=== PATIENT | male | born 1950 | race Caucasian/White ===

== ENCOUNTER 2019-09-27 14:56 | Inpatient (IN) | payer BC, MEDICARE ==
[~2019-09-27] VITALS: Ht 177.8 cm; Wt 90.9 kg
[2019-10-19 11:40] LABS: BASOPHILS 0.3 % (0-2); EOSINOPHILS 0.9 % (0-7); HEMATOCRIT 45.3 % (42.0-54.0); HEMOGLOBIN 14.5 g/dL (13.5-17.5); IMMATURE GRANULOCYTES 0.5 % (0-5); LYMPHOCYTES 24.2 % (15-50); MCV 90.6 fL (80.0-100.0); MEAN PLATELET VOLUME 9.9 fL (7.4-10.4); MONOCYTES 8.2 % (2-11); NEUTROPHILS 65.9 % (40-80); PLATELET COUNT 293 10x3/uL (130-400); RDW 13.3 % (11.5-14.5); WBC 6.5 10x3/uL (4.8-10.8)
[2019-10-19 11:47] LABS: CALCIUM 8.9 mg/dL (8.5-10.1); CARBON DIOXIDE 30.9 mmol/L (21.0-32.0); CREATININE - SERUM 1.1 mg/dL (0.6-1.3); POTASSIUM - SERUM 3.9 mmol/L (3.5-5.1)
[2019-10-19 11:51] LABS: APTT 27.8 SECONDS (22.8-39.4); INR 0.97 (0.85-1.17); PROTIME 12.9 SECONDS (11.6-15.0)
[2019-10-19 12:46] LABS: BILIRUBIN NEGATIVE (NEGATIVE); GLUCOSE NEGATIVE (NEGATIVE); KETONE NEGATIVE (NEGATIVE); NITRITE NEGATIVE (NEGATIVE); UROBILINOGEN NORMAL (NORMAL)
[2019-10-26] VITALS (12 sets, daily range): BP systolic 120–169; BP diastolic 64–99; Ht 177.8 cm; Wt 90.9 kg
--- NOTE | 2019-10-26 07:45 | NUR ---
PLASMA BLADE USED ON SETTING 6/8. CAUTERY PAD ON RIGHT FLANK LOT#[id number] EXP. 05/11/2021
--- NOTE | 2019-10-26 11:20 | NUR ---
PT RECEIVED FROM RECOVERY, AWAKE, ALERT AND ORIENTED. RESP EVEN AND UNLABORED. IV TO LEFT WRIST WITH LR @ 50ML/HR INFUSING VIA PUMP. SITE WITHOUT REDNESS OR EDEMA. SHAQUILLE WRAP DRESSINGS IN PLACE TO BILATERAL LOWER EXTREMITIES. PPPX4. ABLE TO MOVE BILATERAL LOWER EXTREMITIES. WARM TO TOUCH. ORIENTED TO CL, BED CONTROLS AND ROOM. DENIES QUESTIONS OR FURTHER NEEDS AT THIS TIME. CL WITHIN REACH. ENCOURAGED TO CALL WITH NEEDS.
--- NOTE | 2019-10-26 13:54 | NUR ---
PT REPORTS PAIN TO BILATERAL LOWER EXTREMITIES 7/10. PAIN MEDICATIONS ADMINISTERED PER MD ORDERS.
--- NOTE | 2019-10-26 14:30 | NUR ---
PT PAIN REASSESSED. REPORTS PAIN 4/10 AT THIS TIME. ICE PACKS NOTED TO BILATERAL KNEES. LOWER EXTREMITIES WARM TO TOUCH. PLEXI PULSES ON.
--- NOTE | 2019-10-26 15:35 | NUR ---
PT RESTING QUIETLY IN BED WITH EYES CLOSED. RESP EVEN AND UNLABORED. CL WITHIN REACH. ENCOURAGED TO CALL WITH NEEDS.
--- NOTE | 2019-10-26 17:20 | NUR ---
CPM PLACED TO LEFT LOWER EXTREMITY. PT RANDOLPH WELL. DENIES PAIN AT THIS TIME. CL WITHIN REACH. ENCOURAGED TO CALL WITH NEEDS.
--- NOTE | 2019-10-26 18:15 | NUR ---
ASSESSED PT PAIN WITH CPM IN PLACE. PT REPORTS "LITTLE ACHES, BUT NOT ENOUGH FOR MEDICINCE YET." ENCOURAGED PT TO CALL WITH NEEDS OR PAIN. CL WITHIN REACH.
--- NOTE | 2019-10-26 19:30 | NUR ---
ALERT RESTING IN BED REPORTS PAIN OF ABOUT 5 TORDOL GIVEN ORDERED, CPM REMOVED FROM LEFT KNEE AND PLACED ON RIGHT KNEE AT THIS TIME TOLERATED WELL, HAS VOIDED 400CC FRANCES URINE IN URINAL, SEE SHIFT ASSESSMENT, CALL LIGHT IN REACH, NO NEEDS VOICED AT THIS TIME
[2019-10-27 04:00] VITALS: BP 123/63
--- NOTE | 2019-10-27 04:30 | NUR ---
MEDIACTED FOR PAIN WITH OXYCODONE 10 AND VISTRIL PRIOR TO STARTING CPM ON RIGHT LEG AT THIS TIME TOLERATING WELL, NO FUTHER NEEDS VOICED
--- NOTE | 2019-10-27 06:50 | NUR ---
PT RESTING QUIETLY IN BED WITH CPM IN PLACE TO RIGHT LOWER EXTREMITY. PT RANDOLPH WELL. CPM REMOVED FROM RIGHT LEG AND PLACED TO LEFT LEG. PULSES PALPABLE, EXTREMITIES WARM TO TOUCH. REPORTS PAIN 2/10 AT THIS TIME. IV TO LEFT WRIST WITH 1/2 NS @ 50ML/HR INFUSING VIA PUMP. SITE WITHOUT REDNESS OR EDEMA. PT VOIDED 450ML CLEAR YELLOW URINE. DENIES FURTHER NEEDS AT THIS TIME. CL WITHIN REACH. ENCOURAGED TO CALL WITH NEEDS. CONTINUE POC
[2019-10-27 07:02] LABS: HEMATOCRIT 35.5 % (42.0-54.0); HEMOGLOBIN 11.1 g/dL (13.5-17.5); MCH 28.7 pg (26.0-34.0); MCHC 31.3 g/dL (31.0-37.0); MCV 91.7 fL (80.0-100.0); MEAN PLATELET VOLUME 10.1 fL (7.4-10.4); RBC 3.87 10x6/uL (4.20-6.10); RDW 13.5 % (11.5-14.5)
[2019-10-27 07:31] VITALS: BP 126/67
--- NOTE | 2019-10-27 07:43 | NUR ---
PT REQUEST TORADOL AT THIS TIME IN PREPARATION FOR PHYSICAL THERAPY. PT REPORTS PAIN 2/10 AT THIS TIME. IV SALINE LOC'D AT THIS TIME, GOOD BLOOD RETURN, EASILY FLUSHED. DENIES NEEDS AT THIS TIME. CL WITHIN REACH. ENCOURAGED TO CALL WITH NEEDS.
--- NOTE | 2019-10-27 08:50 | NUR ---
PT RESTING IN BED. REPORTS NO PAIN AT THIS TIME. CPM REMOVED FROM LEFT LOWER EXTREMITY AT THIS TIME. DENIES FURTHER NEEDS AT THIS TIME. CL WITHIN REACH. ENCOURAGED TO CALL WITH NEEDS.
--- NOTE | 2019-10-27 09:32 | NUR ---
PHYSICAL THERAPY AT BEDSIDE FOR THERAPY.
--- NOTE | 2019-10-27 10:51 | NUR ---
PT SITTING UP IN CHAIR AT BEDSIDE WITH EYES CLOSED. RESP EVEN AND UNLABORED. CHAIR ALARM IN PLACE AND ON. CL WITHIN REACH.
[2019-10-27 11:59] VITALS: BP 131/67
--- NOTE | 2019-10-27 12:00 | NUR ---
MOVED PT FROM BED TO CHAIR. PT DENIES PAIN. ASKED PT IF SHE WANTED TO WATCH TV. PT SAID THAT "THE LITTLE GIRL CAN PICK THE CHANNEL", PROVIDED REALITY ORIETATION. PT STATED THAT SHE KNEW SHE WAS IN THE HOSPITAL FOR HIP SX AND THAT THE MEDS WERE JUST "GETTING TO HER". ENCOURAGED FLUID INTAKE. CAHIR ALARM ON. PT DENIES FURTHER NEEDS. CL IN REACH. WILL CONTINUE TO MONITOR.
[2019-10-27] MEDS ORDERED: VISTARIL50 MG PO (13:21)
[2019-10-27] MEDS ORDERED: ELIQUIS2.5 MG PO (13:21)
[2019-10-27] MEDS ORDERED: oxyCODONE IR PO (13:21)
[2019-10-27] MEDS ORDERED: KEFLEX500 MG PO (13:22)
--- NOTE | 2019-10-27 13:24 | OP ---
PATIENT NAME: NOHEMI FLYNN MEDICAL RECORD: [id number] :54 [id number] ADMISSION DATE:10/26/19 SURGEON: JER LEONG DO DATE OF OPERATION: 10/26/2019 PROCEDURE PERFORMED: Bilateral total knee arthroplasty. PREOPERATIVE DIAGNOSIS: Bilateral knee osteoarthritis. POSTOPERATIVE DIAGNOSIS: Bilateral knee osteoarthritis. INDICATIONS: Mr. Flynn is a 69-year-old male who has been seeing me for quite some time with getting injections in his knees, got to a point where they were not helping. He wanted something done surgically and wanted the both done at the same time. I told him that this was fine, but he would be at risk for infection, bleeding, longer rehabilitation, continued pain, arthrofibrosis, failure of implants, need for further surgery, blood clots, and even and he signed the consent. SURGEON: Jer Leong DO DESCRIPTION OF PROCEDURE: The patient was given a block by anesthesia in the preoperative area. He was given 2 grams of Ancef and 80 mg of gentamicin preoperatively and a gram of TXA. He was then taken to the operative suite, laid in supine position, given general anesthetic and LMA was placed. Bilateral lower extremities were prepped and draped in sterile fashion. A timeout was performed and everyone was in agreement with the correct side, site, patient and procedure. We then began with the left one first, covering the right one in sterile dressings. The incision was marked out and covered in Ioban. I then used 10 blade scalpel and made careful dissection down to the capsule and then with a fresh 10-blade did a medial parapatellar approach, removed part of the fat pad middle down the patella and flexed up the femur, removed the ACL and went to the femoral canal with the drill and cut the distal femur off the intramedullary guide. I then cut the proximal tibia as well. I then brought the knee in extension, removed the menisci and fit the 10 extension block and it fit well. We then flexed the knee up and measured the femur to be a 70. A 70 cutting block was then placed and Rios wing was used to ensure there would not be any notching and then it was pinned into place and cut through the 4-in-1 cutting block and removed the bone and then put the trial on and floated in the tibia and marked the rotation. We then drilled for the patella and lug holes in the femur and then prepared the tibia, sized to be 79. We reamed and punched it and put extra holes in the tibia for the cement. We then irrigated that and then the cement was mixed and placed on the implant and the tibia. I impacted the tibial implant into place and removed the excess cement. We then put the femur on and then put a 12-poly in between and brought into extension and put the patella on after irrigating it out with cement in the holes and on the implant, squeezed it and excess cement was removed from that. We then put in a 10% povidone-iodine and 500 mL normal saline solution and left it for 3 minutes, irrigated out with a liter of normal saline. We then trialed and the 14 E-poly fit very well and pinned it in and put the locking bar into placed, ranged the knee, ranging very very well. I then put in Gladys and vancomycin and tobramycin powder and then closed the capsule with #1 Vicryl pop-offs. I was ob gyn physician assistant by Casimiro Duque, certified surgical data entry assistant with closing the capsule and the skin. The skin was then closed with 2-0 Vicryl in inverted interrupted fashion and then the ZipLine placed on the knee. It was then OPERATIVE REPORT [id number] RINA,NOHEMI dressed with Adaptic, 4 x 4s, ABD, and Webril. The knee was then covered and then the right knee was exposed, reprepped and then marked out and then covered in Ioban. Once it was covered in Ioban, incision was made over the previously marked out incision and careful dissection was made down to the capsule. A fresh 10-blade was then used to make medial parapatellar approach. 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 I removed a portion of it and shoved it out to its peak. The quad tendon was intact and was very strong. I then milled the patella down, and sized it, and decided to do 28-patella. The knee was then flexed up. The ACL was removed and we drilled into the intramedullary canal of the femur. Then, we put the distal femur cutting guide on and cut the distal femur. The proximal tibia was then cut as well. After the proximal tibia was cut, I removed the menisci and put the 10 extension block in and it fit very well. I then flexed the knee up and sized the femur to be 70. A 70, 4-in-1 cutting block was then put on. Rios wing was used to ensure there was no notching, I then pinned it into place. After cutting did the 4-in-1 cutting block and removed the cut bone. Once the bone was removed, we put on the 70 trial and floated in the tibia with the tibial poly. I marked the rotation. I then drilled the patella and the lug holes on the femur. I removed the trial and sized it to be a 79, and then reamed and punched it and put extra holes in that. This was then irrigated and cement was mixed. Cement was placed in the tibia and the implant, impacted into place. Excess cement was removed. The femur was impacted on and a poly was put in between and brought to extension. We did the patella, irrigated out and then put cement on the patella and on the implant and squeezed into place. Excess cement was removed. I then put the 10% povidone-iodine and 500 mL normal saline solution on the knee, let it sit for 3 minutes and irrigated out with a liter of normal saline while the cement dried. Once the cement was dried, I trialed a 12 poly and it fit very well, and decided to go with a 12 poly on that side. The knee was then irrigated one more time and then Gladys and vancomycin and tobramycin powder were placed in the knee. The capsule was then closed with #1 pop-off Vicryls in a zckbus-uz-blfew fashion. This was done by myself and Casimiro Duque, certified surgical data entry assistant. We then both closed the skin with 2-0 Vicryl in an inverted interrupted fashion and then a ZipLine was placed on the knee. Adaptic, 4 x 4s, ABD, Webril, Jones wrap were then placed on both of these. He was then awakened and taken to recovery in stable condition. Blood loss was approximately 400 mL. COMPLICATIONS: None. TRANSINT:[id number] Voice Confirmation ID: [id number] DOCUMENT ID: [id number] JER LEONG DO at 1324 CC: [id number] DICTATION DATE: 10/26/19 1039 AUTOMOTIVE SERVICE ADVISOR: 10/26/19 1638 ADM IN [facility] [address] [place] [address]
--- NOTE | 2019-10-27 13:40 | NUR ---
PT AMBULATING IN HALLWAY AND IN [facility] WITH PHYSICAL THERAPY. PT RANDOLPH WELL.
--- NOTE | 2019-10-27 15:35 | NUR ---
PT PREPPED FOR DISCHARGE. IV DISCONTINUED TO LEFT WRIST, CATH INTACT, BANDAGE APPLIED. DISCUSSED DISCHARGE PAPERWORK WITH PT, INCLUDING DRESSING CHANGES FOR INCISIONS, USE OF SHAQUILLE WRAP, MONITORING FOR S/S OF INFECTION. EDUCATED PT REGARDING NEW PRESCRIPTIONS, OXCODONE IR, VISTARIL, ELIQUIS AND KEFLEX. PT DENIES QUESTIONS OR CONCERNS. REPORTS MEDICAL EQUIPMENT WAS DELIVERED TO HOME. PT TAKEN OUT VIA W/C TO PRIVATE VEHICLE WITH ALL PERSONAL POSESSIONS.
--- NOTE | 2019-10-27 16:05 | MORECARE ---
CASE MANAGEMENT DISCHARGE SUMMARY PATIENT: NOHEMI FLYNN UNIT: [id number] ADM DATE: 10/26/19 AGE: 69 : 52 SEX: M ROOM/BED: D.1213 AUTHOR: LAXMI DE SANTIAGO PHYSICIAN: REFERRING PHYSICIAN: TIMOTHY LEONG DO DATE OF SERVICE: 10/27/19 Discharge Plan Patient Name: NOHEMI FLYNN [facility] [facility] 1950 Planned Disposition: Anticipated Discharge Date: Discharge Date: 10/27/2019 Expected LOS: Initial Reviewer: [email or web address] Initial Review Date: 10/27/2019 Generated: 10/27/19 5:04 pm Patient Name: NOHEMI FLYNN Page [id number] at 1605 All edits/amendments must be made on the electronic document DICTATION DATE: 10/27/19 1604 ROTARY ADJUSTER: ZULMA 10/27/19 1604 RPT#: [id number] DC DATE:10/27/19 STATUS: DIS IN [facility] [address] [place] [address] END OF REPORT
--- NOTE | 2019-10-27 16:12 | MORECARE ---
CASE MANAGEMENT DISCHARGE SUMMARY PATIENT: NOHEMI FLYNN UNIT: [id number] ADM DATE: 10/26/19 AGE: 69 : 52 SEX: M ROOM/BED: D.1213 AUTHOR: LAXMI DE SANTIAGO PHYSICIAN: REFERRING PHYSICIAN: TIMOTHY LEONG DO DATE OF SERVICE: 10/27/19 Discharge Plan Patient Name: NOHEMI FLYNN [facility] : 1950 Planned Disposition: Anticipated Discharge Date: Discharge Date: 10/27/2019 Expected LOS: Initial Reviewer: [email or web address] Initial Review Date: 10/27/2019 Generated: 10/27/19 5:12 pm DCP- Discharge Planning Updated by [email or web address]: Morenita Butler on 10/27/19 3:[address] Patient Name: NOHEMI FLYNN Admission Status: Elective Accout number: [id number] Admission Date: 10-26-2019 : 1950 Admission Diagnosis:BILATERAL PRIMARY OSTEOARTHRITIS OF KNEE Attending: TIMOTHY LEONG Current LOS: 1 Anticipated DC Date: Planned Disposition: Primary Insurance: [employer] Discharge Planning Comments: CM met with patient at bedside after explaining CM role and obtaining verbal consent. CM discussed availability / needs of home health, REHAB and medical equipment. [facility] IS DELIVERING EQUIPMENT TO THE HOME. PATIENT STATES APPOINTMENT THURSDAY WITH DR. LEONG. NOT INTERESTED IN HH. ANTICIPATES ORTHO OFFICE TO PLAN OUTPATIENT PT AT NEXT APPOINTMENT. 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 CM TO FOLLOW AND ASSIST NEEDED. Recreation Activities Coordinator: Morenita Butler Last DP export: 10/27/19 3:05 pm Patient Name: NOHEMI FLYNN Page [phone] at 1612 All edits/amendments must be made on the electronic document DICTATION DATE: 10/27/19 1612 REHAB AIDE: [email or web address] 10/27/19 161 RPT#: [id number] DC DATE:10/27/19 STATUS: DIS IN [facility] [address] [facility] [place] [address] END OF REPORT
== END 2019-10-27 16:01 | disposition home or self-care (01) | DRG 462 ==
LOC: D.SDCHOLD 10-19 10:00 → D.M3 10-26 05:26 → D.SDCHOLD 10-26 07:00 → D.M3 10-26 11:05
PROVIDERS: ADMIT Orthopaedic Surgery; ATTEND Orthopaedic Surgery
PROC: 0SRC0J9 Replacement of Right Knee Joint with Synthetic Substitute, Cemented, Open Approach (ICD-10-PCS; 2019-10-26)
PROC: 0SRD0J9 Replacement of Left Knee Joint with Synthetic Substitute, Cemented, Open Approach (ICD-10-PCS; principal; 2019-10-26 07:00)
DX: M17.0 Bilateral primary osteoarthritis of knee (principal); I10 Essential (primary) hypertension; Z87.891 Personal history of nicotine dependence

== ENCOUNTER → 2019-10-17 19:00 | Outpatient (CLI) | payer BC | END | disposition home or self-care (01) | LOC: D.LABREF 19:00 | PROVIDERS: ATTEND Orthopaedic Surgery | DX: M17.0 Bilateral primary osteoarthritis of knee (principal) ==